=== PATIENT | male | born 1925 | race Caucasian/White ===

== ENCOUNTER 2017-02-05 07:09 | Outpatient (CLI) | payer MEDICARE, OTHER ==
[2017-02-05 07:43] LABS: MEAN CORPUSCULAR HEMOGLOBIN 30.5 pg (28.0-34.0); MEAN CORPUSCULAR VOLUME 93.9 fl (80.0-100.0)
[2017-02-05 08:23] LABS: eGFR (African) > 60; eGFR (Non-African) > 60
== END 2017-02-05 09:04 ==
LOC: LAB 07:09
PROVIDERS: ATTEND Internal Medicine
DX: E11.9 Type 2 diabetes mellitus without complications (principal); E78.5 Hyperlipidemia, unspecified; I10 Essential (primary) hypertension
CPT/HCPCS: 36415; 80053; 80061; 84443; 85027